=== PATIENT | male | born 1930 | race Caucasian/White ===

== ENCOUNTER → 2018-10-18 | Outpatient (CLI) | payer MEDICARE, OTHER ==
--- NOTE | 2018-10-18 12:50 | US ---
EXAMINATION TYPE: US thyroid st tissue head/neck DATE OF EXAM: 10/18/2018 COMPARISON: NONE CLINICAL HISTORY: 87-year-old male R94.6 Abnormal results of thyroid function studies. TECHNIQUE: Multiple sonographic images of the thyroid gland are obtained. FINDINGS: GLAND SIZE: Right Lobe: 3.4 x 0.8 x 1.3 cm Overall Parenchyma: homogenous Left Lobe: 2.8 x 0.8 x 1.3 cm Overall Parenchyma: homogeneous Isthmus Thickness: 0.3 cm NODULES RIGHT: # of nodules measured on right: 0 LEFT: # of nodules measured on left: 0 ISTHMUS: # of nodules measured in the isthmus: 0 Pi/[employer] notes: Patient unable to adequately lift his chin in the thyroid gland is situated inferi rena, technically difficult. Bilateral neck scanned, no evidence of lymphadenopathy. IMPRESSION: Technically challenging exam. No discrete thyroid nodules identified. Gland measurements as above.
== END | disposition home or self-care (01) ==
LOC: RADUSWWP 10:21
PROVIDERS: ATTEND Physician Assistant Medical
DX: R94.6 Abnormal results of thyroid function studies (principal)
CPT/HCPCS: 76536

== ENCOUNTER → 2019-03-16 | Outpatient (CLI) | payer OTHER ==
--- NOTE | 2019-03-16 16:08 | US ---
EXAMINATION TYPE: US kidneys/renal and bladder DATE OF EXAM: 03/16/2019 COMPARISON: NONE CLINICAL HISTORY: N13.39 Other hydronephrosis. Hydronephrosis EXAM MEASUREMENTS: Right Kidney: 8.5 x 3.9 x 4.4 cm Left Kidney: 7.8 x 4.3 x 3.9 cm Right Kidney: measures small in size, cortical thinning, no hydronephrosis or masses seen Left Kidney: limited visualization, area seen appears to be left kidney with extremely diminished cor tical medullary differentiation, likely on the basis of advanced chronic medical renal disease, no hy dronephrosis or masses seen Bladder: not visualized Aorta: 5.1 x 5.6cm aneurysm. This extends over 7.8 cm in length and appears saccular within the dis krystyna abdominal aorta. There is no evidence for hydronephrosis at this point in time. No nephrolithiasis is seen. No jaime s are identified. Urinary bladder is nonvisualized IMPRESSION: 1. 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 Vascular surgical consultation and CTA abdomen and pelvis are recommended. Findings were communicated with Adriana henry at the ordering physician's office on 03/16/[address] Cody. 2. Sequela of chronic medical renal disease with cortical thinning on the right and extremely diminis hed cortical medullary differentiation on the left. No hydronephrosis of either kidney. Urinary bladd er is not seen sonographically.
== END ==
LOC: RADUSWWP 14:59
DX: N18.9 Chronic kidney disease, unspecified (principal); I71.4 Abdominal aortic aneurysm, without rupture; R93.421 Abnormal radiologic findings on diagnostic imaging of right kidney
CPT/HCPCS: 76770